=== PATIENT | male | born 2000 | race American Indian/Alaskan Native ===

== ENCOUNTER 2021-12-12 22:21 | Emergency (ER) | payer SELFPAY ==
[2021-12-13 01:15] VITALS: BP 132/67
[2021-12-13] MEDS ORDERED: HYDROcodone/ACETAMINOPHEN 5-325 MG TAB PO ONE (05:07)
[2021-12-13] MEDS ORDERED: LIDOCAINE-MPF (1%) 10 MG/1 ML VIAL 5 ML INFILTRATI ONE (05:07)
--- NOTE | 2021-12-13 06:32 | Emergency Department Report ---
ED General Adult HPI - General Chief complaint: Extremity Problem,Nontraumatic Stated complaint: FINGER INFECTED Time Seen by Provider: 12/13/21 05:06 Source: patient Mode of arrival: Ambulatory Limitations: No Limitations - History of Present Illness Initial comments: Patient 21-year-old male who presents for right index finger paronychia x3 days. States pain and swelling throbbing infected. 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 There is no fevers no chills. There is swelling and ecchymosis no drainage. Range of motion remains intact. Severity scale (0 -10): 8 - Related Data Previous Rx's Medication Instructions Recorded Last Taken Type cephALEXin [Keflex] 500 mg PO Q8HR 7 Days #21 cap 12/13/21 Unknown Rx traMADoL [Ultram] 50 mg PO Q6HR PRN #12 tablet 12/13/21 Unknown Rx Allergies Allergy/AdvReac Type Severity Reaction Status Date / Time No Known Allergies Allergy Verified 12/13/21 01:17 ED Review of Systems ROS: Stated complaint: FINGER INFECTED Other details as noted in HPI Constitutional: denies: chills, fever Eyes: denies: eye pain, eye discharge, vision change ENT: denies: ear pain, throat pain Respiratory: denies: cough, shortness of breath, wheezing Cardiovascular: denies: chest pain, palpitations Endocrine: no symptoms reported Gastrointestinal: denies: abdominal pain, nausea, diarrhea Genitourinary: denies: urgency, dysuria Musculoskeletal: denies: back pain, joint swelling, arthralgia Skin: other (Pain and swelling left distal index finger) Neurological: denies: headache, weakness, paresthesias, vertigo Psychiatric: denies: anxiety, depression Hematological/Lymphatic: denies: easy bleeding, easy bruising ED Past Medical Hx - Medications Home Medications: Home Medications Medication Instructions Recorded Confirmed Last Taken Type cephALEXin [Keflex] 500 mg PO Q8HR 7 Days #21 cap 12/13/21 Unknown Rx traMADoL [Ultram] 50 mg PO Q6HR PRN #12 tablet 12/13/21 Unknown Rx ED Physical Exam - General Limitations: No Limitations General appearance: alert, in no apparent distress - Head Head exam: Present: atraumatic, normocephalic - Eye Eye exam: Present: EOMI Pupils: Present: normal accommodation - ENT ENT exam: Present: mucous membranes moist - Neck Neck exam: Present: normal inspection - Respiratory Respiratory exam: Present: normal lung sounds bilaterally. Absent: respiratory distress - Cardiovascular Cardiovascular Exam: Present: regular rate, normal rhythm. Absent: systolic murmur, diastolic murmur, rubs, gallop - GI/Abdominal GI/Abdominal exam: Present: soft, normal bowel sounds. Absent: distended, tenderness - Rectal Rectal exam: Present: deferred - Extremities Exam Extremities exam: Present: full ROM - Expanded Upper Extremity Exam Right Hand Wrist exam: Present: full ROM, tenderness (Right index finger erythema swelling ecchymosis), swelling, ecchymosis, erythema. Absent: abrasion, laceration, deformity, crepidus, dislocation, amputation, nail avulsion, subungual hematoma Neuro motor exam: Present: wrist extension intact, thumb opposition intact, thumb IP flexion intact, thumb adduction intact, fingers 2-5 abduction intact Neurosensory exam: Present: radial nerve intact Vascular: Present: normal capillary refill - Back Exam Back exam: Present: normal inspection, full ROM - Neurological Exam Neurological exam: Present: alert, oriented X3, CN II-XII intact. Absent: motor sensory deficit - Expanded Neurological Exam Expanded Motor strength exam: RUE: 5, LUE: 5 Best Eye Response ([place]): (4) open spontaneously Best Motor Response ([place]): (6) obeys commands Best Verbal Response ([place]): (5) oriented [place] Total: 15 - Psychiatric Psychiatric exam: Present: normal affect, normal mood - Skin Skin exam: Present: warm, dry, intact, normal color. Absent: rash ED Course Vital Signs 12/13/21 00:54 Temperature 97.5 F L Pulse Rate 75 Respiratory 18 Rate Blood Pressure 132/67 O2 Sat by Pulse 99 Oximetry - I & D Right Distal Finger Type of Procedure: Simple (Right index finger paronychia) Site: Right index finger Blade Size: 11 I & D Procedure: betadine prep, sterile drapes applied, sterile dressing applied Progress: Right index finger paronychia site cleaned with Betadine solution anesthesia 1% lidocaine via digital block digital block was achieved. Incision with 11 blade scalpel to base of nail bed moderate purulent bloody drainage. Wound irrigated with 10 cc sterile saline. Nailbed probed with Q-tip loss. Nail remains intact [employer]AIR [employer]SEM[employer]ER is less than 3 seconds bilateral distal pulses intact. Dressings applied all bleeding is controlled. Patient given wound care instructions. Including follow-up primary care in 2 days for wound check. Patient verbalized agreement understanding with same patient tolerated procedure with minimal distress. ED Medical Decision Making - Medical Decision Making I&D of right index finger paronychia. See procedure note. All bleeding is controlled sterile dressing is intact. Patient DC'd home in stable condition at this time with prescriptions. Patient will follow primary care in 2 days for wound check. Patient verbalized agreement understanding of same. Critical care attestation.: If time is entered above; I have spent that time in minutes in the direct care of this critically ill patient, excluding procedure time. ED Disposition Clinical Impression: Paronychia of right index finger Disposition: HOME / SELF CARE / HOMELESS Is pt being admited?: No Does the pt Need Aspirin: No Condition: Stable Instructions: Paronychia, [id number], Fingertip Infection Additional Instructions: Take medications as prescribed, wash with soap and water daily, follow-up with your doctor in 2 days for wound check return to the emergency department if symptoms worsen. Prescriptions: cephALEXin [Keflex] 500 mg PO Q8HR 7 Days #21 cap traMADoL [Ultram] 50 mg PO Q6HR PRN #12 tablet PRN Reason: Pain Referrals: JODI WILSON MD [Primary Care Provider] - 3-5 Days Forms: Work/School Release Form(ED) Time of Disposition: 06:37
== END 2021-12-13 06:43 | disposition home or self-care (01) ==
LOC: ED 22:21
DX: L03.012 Cellulitis of left finger (principal)
CPT/HCPCS: 10060; 99282; J3490